=== PATIENT | female | born 1940 | race Caucasian/White ===

== ENCOUNTER → 2017-02-03 | Outpatient (CLI) | payer MEDICARE ==
[~2017-02-03] MED LIST: LIDOCAINE 1%, 20ML ONE; LIDOCAINE 1%-EPI 1:100K, 20ML ONE; SODIUM BICARBONATE 4.2%, 5ML ONE
== END | disposition home or self-care (01) ==
LOC: CFH 12:09
PROVIDERS: ATTEND Nurse Practitioner Family
DX: R92.1 Mammographic calcification found on diagnostic imaging of breast (principal)
CPT/HCPCS: 19081; 88305; G0206; J3490; 88342; G0461

== ENCOUNTER → 2020-12-10 | Outpatient (CLI) | payer MEDICARE | END | disposition home or self-care (01) | LOC: CFH 13:49 | PROVIDERS: ATTEND Nurse Practitioner Family | DX: R92.0 Mammographic microcalcification found on diagnostic imaging of breast (principal); N63.20 Unspecified lump in the left breast, unspecified quadrant | CPT/HCPCS: 76642; 77062; 77066; G0279 ==

== ENCOUNTER 2021-02-06 12:20 | Outpatient (CLI) | payer MEDICARE ==
[2021-02-06] MEDS ORDERED: LIDOCAINE 1%, 20ML ONE (12:45)
[2021-02-06] MEDS ORDERED: SODIUM BICARBONATE 4.2%, 5ML ONE (12:45)
[2021-02-06] MEDS ORDERED: LIDOCAINE 1%-EPI 1:100K, 20ML ONE (12:45)
== END 2021-02-06 23:59 | disposition home or self-care (01) ==
LOC: CFH 12:20
PROVIDERS: ATTEND Nurse Practitioner Family
DX: R92.0 Mammographic microcalcification found on diagnostic imaging of breast (principal); D05.12 Intraductal carcinoma in situ of left breast
CPT/HCPCS: 19083; 88305; 88341; 88342; 88360; 77065